=== PATIENT | male | born 1950 | race Caucasian/White ===

== ENCOUNTER 2019-10-13 15:45 | Emergency (ER) | payer OTHER, MEDICAID ==
[~2019-10-13] VITALS: Ht 167.6 cm; Wt 104.3 kg
[2019-10-13 16:00] VITALS: BP 160/54
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
--- NOTE | 2019-10-13 16:20 | NUR ---
PT TAKEN TO RADIOLOGY FOR CT
[2019-10-13] MEDS ORDERED: IBUPROFEN 600 MG TABLET ONE (16:27)
[2019-10-13] MEDS ORDERED: ACETAMINOPHEN ES 500 MG TABLET ONE (16:27)
--- NOTE | 2019-10-13 16:31 | NUR ---
PT BACK FROM CT
[2019-10-13] MEDS: IBUPROFEN 600 MG TABLET PO ONE (16:34)
[2019-10-13] MEDS: ACETAMINOPHEN ES 500 MG TABLET PO ONE (16:34)
--- NOTE | 2019-10-13 17:26 | NUR ---
Patient discharged to home in stable condition. Written and verbal after care instructions given. Patient verbalizes understanding of instruction.pt. ambulatory with a steady gait
== END 2019-10-13 17:26 | disposition home or self-care (01) ==
LOC: ER 15:47
DX: S39.012A Strain of muscle, fascia and tendon of lower back, initial encounter (principal); M54.2 Cervicalgia; I10 Essential (primary) hypertension; E11.9 Type 2 diabetes mellitus without complications; Z90.49 Acquired absence of other specified parts of digestive tract; Z98.890 Other specified postprocedural states; Z88.0 Allergy status to penicillin; V49.49XA Driver injured in collision with other motor vehicles in traffic accident, initial encounter; Y93.89 Activity, other specified; Y92.413 State road as the place of occurrence of the external cause; Y99.8 Other external cause status
CPT/HCPCS: 72125-TC; 72131-TC